=== PATIENT | male | born 1985 | race Two or more races ===

== ENCOUNTER 2019-11-15 05:27 | Emergency (ER) | payer OTHER ==
[~2019-11-15] VITALS: Ht 180.3 cm; Wt 104.3 kg
[2019-11-15 06:03] VITALS: BP 156/98
[2019-11-15] MEDS ORDERED: SILVER SULFADIAZINE 1 % TOPICAL CREAM 50GM TOP ONE (06:45)
== END 2019-11-15 07:30 | disposition home or self-care (01) ==
LOC: ER 05:27
DX: T23.212A Burn of second degree of left thumb (nail), initial encounter (principal); T23.211A Burn of second degree of right thumb (nail), initial encounter; X08.8XXA Exposure to other specified smoke, fire and flames, initial encounter; Y93.89 Activity, other specified; Y92.69 Other specified industrial and construction area as the place of occurrence of the external cause; Y99.8 Other external cause status
CPT/HCPCS: 16000